=== PATIENT | female | born 1965 | race Caucasian/White ===

== ENCOUNTER 2018-09-09 16:50 | Emergency (ER) | payer BC, SELFPAY ==
[2018-09-09 16:53] VITALS: BP 132/76; PULSE 66; RESP 16; TEMP 37; O2SAT 96
--- NOTE | 2018-09-09 17:17 | W.ED.GENAD ---
Discharge Plan Disposition Patient Disposition: HOME Condition: Stable Discharge Details Chief Complaint: Abd Prob Clinical Impression: Abdominal pain Primary Care Provider: None,None ED Provider: Benito Grimes Home Meds and New Rx's Prescriptions: Continued Faslodex 250 mg/5 mL Syringe 500 mg IM Q14D RF: 0 Ibrance 100 mg Capsule 100 mg PO DAILY RF: 0 Discharge Instructions Instructions: Abdominal Pain (ED) Additional Instructions: Return immediately to the emergency department for any severe change in your symptoms, fever chills, nausea vomiting, or any further concerns you may have. Otherwise continue to take your medication as prescribed and follow-up with your oncologist when you return home. Referrals: Primary Care Provider [Outside] (Please follow-up with your oncologist when you return home. ) Discharge Data Discharge Date/Time-TO BE ENTERED AT DEPARTURE: 09/09/18 19:41 Medical Decision Making Patient presenting to the emergency department for chief complaint of right upper quadrant pain. Patient states that she has metastatic breast cancer to her liver and is undergoing therapy at [facility]. She has had a change in her stool color intermittently for the past week with abdominal pain that started over the past couple days. She does state that eating this afternoon seem to help her symptoms. Patient denies any nausea vomiting, fever chills, any other symptoms. Physical exam shows a soft abdomen with mild right upper quadrant tenderness without Blank sign, otherwise unremarkable exam. Plan to check labs and CT imaging. Patient deferred on imaging until after labs which I feel is reasonable. After review of labs which are reassuring and so no significant change from patient's previous labs with no elevation of LFTs, normal lipase, mild neutropenia which has been stable for patient to given current oncology regimen. Patient was again offered CT imaging of abdomen with also consideration of imaging of the chest given right upper quadrant pain that is underneath the rib cage for rule out of PE but patient has very reassuring vital signs. Patient states that she would prefer to have her oncologist contacted due to him sending her to the emergency department. Spoke to Dr. Amrit Ponce. After thorough discussion of patient's labs, presentation, and physical exam findings he recommended against any further imaging unless patient wanted to proceed with it. He states that he would follow-up with patient early next week and to inform patient of return precautions. I did inform patient that she may return emergency department for any new or worsening signs or symptoms and we did again further discuss CT imaging which she deferred on imaging at this time along with oncologist recommendation. After discussion of diagnosis and plan of care patient has no further needs, questions, or concerns and states clear understanding to return to the emergency department for any worsening symptoms. HPI General Mode of arrival: ambulatory. Date/Time Provider Initiated Documentation: 09/09/18 17:00. Limitations to Documentation: no limitations. Information obtained by: patient and RN notes reviewed. History of Present Illness 52 year old F presents to the emergency department with the chief complaint of RUQ pain, described as mild, with intensity rated at 2. Quality is described as aching, and is localized to the abdomen. Patient started experiencing this day(s) (5) and it has been intermittent. Patient notes no other symptoms.. Patient did receive the following treatments prior to arrival, none Related Data Home Medications Medication Instructions Recorded Confirmed Faslodex 500 mg IM Q14D 09/09/18 09/09/18 Ibrance 100 mg PO DAILY 09/09/18 09/09/18 Allergies Allergy/AdvReac Type Severity Reaction Status Date / Time No Known Allergies Allergy Unverified 09/09/18 16:57 General Stated Complaint: Abd Prob BRANDI: 3 Review of Systems Constitutional Denies chills, Denies fever(s) and Denies poor appetite Cardiovascular Denies chest pain and Denies dyspnea Respiratory Denies cough and Denies dyspnea Gastrointestinal Reports as per HPI, Reports abdominal pain, Denies change in bowel habits, Reports change in stool character, Denies constipation, Denies diarrhea, Denies loose stools, Denies nausea and Denies vomiting Genitourinary Denies hematuria, Denies urinary incontinence, Denies urinary hesitancy and Denies urinary urgency Integumentary/Breasts Denies rash [facility] Medical History Breast cancer (Chronic) Cancer, metastatic to liver (Chronic) Social History Smoking and Tabacco status: Never Exam Const General: cooperative Orientation: alert, awake and oriented x3 Resp Effort & Inspection: normal respiratory effort and able to speak in complete sentences Auscultation: clear to auscultation bilaterally Cardio Rate: regular rate Rhythm: regular rhythm Heart Sounds: S1 normal and S2 normal GI Palpation: soft, no hepatosplenomegaly, not firm, no guarding, no masses, no pulsatile masses, not rigid, no splenomegaly and tender in the RUQ; not at McBurney's point, Blank's sign negative, obturator sign negative, psoas sign negative, with no rebound tenderness and Rovsing's sign negative Auscultation: normal bowel sounds Rectal Exam - female: deferred Back/Spine/Pelvis Back: no CVA tenderness Neuro General: alert, awake, oriented x3, gait normal and moves all extremities Course Vital Signs Temperature 37 C 09/09/18 16:53 Pulse 66 09/09/18 16:53 Respiratory Rate 16 09/09/18 16:53 Blood Pressure 132/76 09/09/18 16:53 Pulse Oximetry 96 09/09/18 16:53 Temperature 37 C 09/09/18 16:53 Temperature Source Skin 09/09/18 16:53 Pulse 66 09/09/18 16:53 Respiratory Rate 16 09/09/18 16:53 Blood Pressure 132/76 09/09/18 16:53 Pulse Oximetry 96 09/09/18 16:53 Oxygen Delivery Method Room Air 09/09/18 16:53 Oxygen Flow Rate 0 09/09/18 16:53 Pain Level 3 09/09/18 16:53
--- NOTE | 2018-09-09 17:22 | ED.GENADUL_ITS ---
Discharge Plan Disposition Patient Disposition: HOME Condition: Stable Discharge Details Chief Complaint: Abd Prob Clinical Impression: Abdominal pain Primary Care Provider: None,None ED Provider: Benito Grimes Home Meds and New Rx's Prescriptions: Continued Faslodex 250 mg/5 mL Syringe 500 mg IM Q14D RF: 0 Ibrance 100 mg Capsule 100 mg PO DAILY RF: 0 Discharge Instructions Instructions: Abdominal Pain (ED) Additional Instructions: Return immediately to the emergency department for any severe change in your symptoms, fever chills, nausea vomiting, or any further concerns you may have. Otherwise continue to take your medication as prescribed and follow-up with your oncologist when you return home. Referrals: Primary Care Provider [Outside] (Please follow-up with your oncologist when you return home. ) Discharge Data Discharge Date/Time-TO BE ENTERED AT DEPARTURE: 09/09/18 19:41 Medical Decision Making Patient presenting to the emergency department for chief complaint of right upper quadrant pain. Patient states that she has metastatic breast cancer to her liver and is undergoing therapy at [facility]. She has had a change in her stool color intermittently for the past week with abdominal pain that started over the past couple days. She does state that eating this afternoon seem to help her symptoms. Patient denies any nausea vomiting, fever chills, any other symptoms. Physical exam shows a soft abdomen with mild right upper quadrant tenderness without Blank sign, otherwise unremarkable exam. Plan to check labs and CT imaging. Patient deferred on imaging until after labs which I feel is reasonable. After review of labs which are reassuring and so no significant change from patient's previous labs with no elevation of LFTs, normal lipase, mild neutropenia which has been stable for patient to given current oncology regimen. Patient was again offered CT imaging of abdomen with also consideration of imaging of the chest given right upper quadrant pain that is underneath the rib cage for rule out of PE but patient has very reassuring vital signs. Patient states that she would prefer to have her oncologist contacted due to him sending her to the emergency department. Spoke to Dr. Amrit Ponce. After thorough discussion of patient's labs, presentation, and physical exam findings he recommended against any further imaging unless patient wanted to proceed with it. He states that he would follow-up with patient early next week and to inform patient of return precautions. I did inform patient that she may return emergency department for any new or worsening signs or symptoms and we did again further discuss CT imaging which she deferred on imaging at this time along with oncologist recommendation. After discussion of diagnosis and plan of care patient has no further needs, questions, or concerns and states clear understanding to return to the emergency department for any worsening symptoms. HPI General Mode of arrival: ambulatory . Date/Time Provider Initiated Documentation: 09/09/18 17:00 . Limitations to Documentation: no limitations . Information obtained by: patient and RN notes reviewed . History of Present Illness 52 year old F presents to the emergency department with the chief complaint of RUQ pain, described as mild, with intensity rated at 2. Quality is described as aching, and is localized to the abdomen. Patient started experiencing this day(s) (5) and it has been intermittent. Patient notes no other symptoms.. Patient did receive the following treatments prior to arrival, none Related Data Home Medications Medication Instructions Recorded Confirmed Faslodex 500 mg IM Q14D 09/09/18 09/09/18 Ibrance 100 mg PO DAILY 09/09/18 09/09/18 Allergies Allergy/AdvReac Type Severity Reaction Status Date / Time No Known Allergies Allergy Unverified 09/09/18 16:57 General Stated Complaint: Abd Prob BRANDI: 3 Review of Systems Constitutional Denies chills, Denies fever(s) and Denies poor appetite Cardiovascular Denies chest pain and Denies dyspnea Respiratory Denies cough and Denies dyspnea Gastrointestinal Reports as per HPI, Reports abdominal pain, Denies change in bowel habits, Reports change in stool character, Denies constipation, Denies diarrhea, Denies loose stools, Denies nausea and Denies vomiting Genitourinary Denies hematuria, Denies urinary incontinence, Denies urinary hesitancy and Denies urinary urgency Integumentary/Breasts Denies rash [facility] Medical History Breast cancer (Chronic) Cancer, metastatic to liver (Chronic) Social History Smoking and Tabacco status: Never Exam Const General: cooperative Orientation: alert, awake and oriented x3 Resp Effort & Inspection: normal respiratory effort and able to speak in complete sentences Auscultation: clear to auscultation bilaterally Cardio Rate: regular rate Rhythm: regular rhythm Heart Sounds: S1 normal and S2 normal GI Palpation: soft, no hepatosplenomegaly, not firm, no guarding, no masses, no pulsatile masses, not rigid, no splenomegaly and tender in the RUQ; not at McBurney's point, Blank's sign negative, obturator sign negative, psoas sign negative, with no rebound tenderness and Rovsing's sign negative Auscultation: normal bowel sounds Rectal Exam - female: deferred Back/Spine/Pelvis Back: no CVA tenderness Neuro General: alert, awake, oriented x3, gait normal and moves all extremities Course Vital Signs Temperature 37 C 09/09/18 16:53 Pulse 66 09/09/18 16:53 Respiratory Rate 16 09/09/18 16:53 Blood Pressure 132/76 09/09/18 16:53 Pulse Oximetry 96 09/09/18 16:53 Temperature 37 C 09/09/18 16:53 Temperature Source Skin 09/09/18 16:53 Pulse 66 09/09/18 16:53 Respiratory Rate 16 09/09/18 16:53 Blood Pressure 132/76 09/09/18 16:53 Pulse Oximetry 96 09/09/18 16:53 Oxygen Delivery Method Room Air 09/09/18 16:53 Oxygen Flow Rate 0 09/09/18 16:53 Pain Level 3 09/09/18 16:53
[2018-09-09 17:45] LABS: HCT 36.4 % (36.0-46.0); HGB 12.6 g/dL (12.0-15.5); Mean Corp. HGB Concentration 34.6 g/dL (32.0-36.0); Mean Corpuscular Hemoglobin 31.2 pg (27.0-33.0); Mean Corpuscular Volume 90.1 fL (80-95); Mean Platelet Volume 9.6 fL (8.0-11.0); Platelet Count 111 x1000/uL (130-400); RBC 4.04 m/cumm (4.00-5.20); RBC Distribution Width 12.5 % (11.7-14.6); White Blood Cell Count 2.79 k/cumm (4.4-10.8)
[2018-09-09 17:56] LABS: ALT 27 U/L (12-78); AST 22 U/L (15-37); Albumin 3.6 g/dL (3.4-5.0); Alkaline Phosphatase 67 U/L (46-116); Anion Gap 9.5 mmol/L (3-11); BUN 8 mg/dL (7-18); Bilirubin, Total 0.2 mg/dL (0.2-1.0); CO2 25.5 mmol/L (21.0-32.0); CREATININE 0.76 mg/dL (0.55-1.02); Chloride 104 mmol/L (98-107); Glucose 98 mg/dL (70-100); Lipase 211 U/L (73-393); Potassium 4.1 mmol/L (3.5-5.1); Sodium 139 mmol/L (136-145); Total Protein 7.6 g/dL (6.4-8.2)
[2018-09-09 17:58] LABS: Bilirubin Negative (Negative); Blood Negative (Negative); Clarity Clear; Glucose Negative (Negative); Ketones Negative (Negative); Leukocyte Esterase Negative (Negative); Nitrite Negative (Negative); Urobilinogen 0.2 EU/dL (Up TO 0.2); pH 7.5 (5-8)
[2018-09-09 18:21] LABS: Absolute Basophil Count 0.03 k/cumm (0.0-0.2); Absolute Eosinophil Count 0.11 k/cumm (0.0-0.7); Absolute Lymphocyte Count 1.56 k/cumm (1.2-3.4); Absolute Monocyte Count 0.06 k/cumm (0.11-0.7); Absolute Neutrophil Count 1.03 k/cumm (1.2-6.7); Atypical Lymphocytes % 8
[2018-09-09 18:22] LABS: Diff Comment RBC Morph Reviewed; Hypochromasia 2+
[2018-09-09 18:23] LABS: Calcium 9.6 mg/dL (8.5-10.1)
[2018-09-09 19:45] VITALS: BP 113/74; PULSE 69; RESP 18; TEMP 36.9; O2SAT 96
== END 2018-09-09 19:41 | disposition home or self-care (01) ==
PROVIDERS: Emergency Provider Nurse Practitioner Family
DX: R10.11 Right upper quadrant pain (principal); R19.5 Other fecal abnormalities; C78.7 Secondary malignant neoplasm of liver and intrahepatic bile duct
CPT/HCPCS: 36415; 80053; 83690; 99283; 81003; 85025